=== PATIENT | male | born 1930 | race Caucasian/White ===

== ENCOUNTER → 2016-12-03 | Outpatient (CLI) | payer MEDICARE, OTHER ==
[~2016-12-03] MED LIST: ARTIFICIAL TEAR15 M4 OPHTH; ASPIRIN LO-DOSE81 MG PO; ASPIRIN325 MG PO; BAC/NEO/POLY O3.5 GM OPHTH; CLEOCIN HCL300 MG PO; CYCLOBENZAPRINE5 MG PO; DESYREL50 MG PO; DILAUDID 2MG(HYD2 MG PO; DULCOLAX10 MG R; LIPITOR40 MG PO; MEGACE SUSP40 MG/ML PO; MILK OF MA400 MG/5 M PO; MIRALAX PO527 GM/BOT PO; MORPHINE SULFAT15 M1 PO; PRILOSEC20 MG PO; REMERON 30 MG30 MG PO; RYTHMOL150 MG PO; SINEMET 25/2501 TAB PO; SYMMETREL 100M100 MG PO; SYSTANE 0.3-0.1 EACH OPHTH; TYLENOL EXTRA500 MG PO; ULTRAM50 MG PO; VIMPAT100 MG PO; VITAMIN D1000 UNIT PO
== END | disposition disaster alternative care site (69) ==
LOC: GRAD 15:50
DX: R29.810 Facial weakness (principal); I67.89 Other cerebrovascular disease

== ENCOUNTER → 2017-02-04 | Day surgery (SDC) | payer MEDICARE, OTHER ==
[~2017-02-04] VITALS: Ht 182.9 cm; Wt 82.1 kg
== END | disposition disaster alternative care site (69) ==
LOC: GPOC 02-03 15:00 → GEND 07:48 → GPOC 08:00
PROC: 0DB68ZX Excision of Stomach, Via Natural or Artificial Opening Endoscopic, Diagnostic (ICD-10-PCS; principal; 2017-02-04)
PROC: 0D798ZZ Dilation of Duodenum, Via Natural or Artificial Opening Endoscopic (ICD-10-PCS; 2017-02-04)
DX: K29.50 Unspecified chronic gastritis without bleeding (principal); R11.10 Vomiting, unspecified; I48.0 Paroxysmal atrial fibrillation; I10 Essential (primary) hypertension; E78.5 Hyperlipidemia, unspecified; M48.06 Spinal stenosis, lumbar region; Z90.49 Acquired absence of other specified parts of digestive tract; Z86.73 Personal history of transient ischemic attack (TIA), and cerebral infarction without residual deficits; Z96.651 Presence of right artificial knee joint; Z96.641 Presence of right artificial hip joint; Z98.890 Other specified postprocedural states
CPT/HCPCS: C1726; J2001; J7030

== ENCOUNTER → 2017-04-21 | Outpatient (CLI) | payer MEDICARE, OTHER | LOC: GOPD 15:40 | DX: M48.06 Spinal stenosis, lumbar region (principal); F32.9 Major depressive disorder, single episode, unspecified; F41.9 Anxiety disorder, unspecified; Z85.46 Personal history of malignant neoplasm of prostate | CPT/HCPCS: J1100 ==

== ENCOUNTER → 2017-04-21 | Outpatient (CLI) | payer MEDICARE, OTHER | END | disposition disaster alternative care site (69) | LOC: GRAD 13:10 | DX: M48.06 Spinal stenosis, lumbar region (principal); M43.06 Spondylolysis, lumbar region; M54.5 Low back pain; M47.896 Other spondylosis, lumbar region ==